=== PATIENT | female | born 2000 | race Two or more races ===

== ENCOUNTER 2024-02-05 05:06 | Observation (INO) | payer OTHER ==
[~2024-02-05] VITALS: Ht 167.6 cm; Wt 91.2 kg
== END 2024-02-05 07:19 | disposition home or self-care (01) ==
LOC: LDRP 05:06
PROVIDERS: ADMIT Obstetrics & Gynecology; ATTEND Obstetrics & Gynecology
DX: O62.9 Abnormality of forces of labor, unspecified (principal); Z3A.38 38 weeks gestation of pregnancy
CPT/HCPCS: 59025; 81002; 94760; G0378